=== PATIENT | female | born 1950 | race Caucasian/White ===

== ENCOUNTER 2017-04-13 19:33 | Emergency (ER) | payer MEDICARE, SELFPAY ==
[~2017-04-13] VITALS: Ht 160 cm; Wt 99.3 kg
[~2017-04-13 19:33] MED LIST: ALIVE WOMEN'S1 EACH PO; CLIN300 PO; Cinnamon500 MG PO; HYDCHL50 PO; LEVSOD50 PO; NAPR220 PO; OTC ALLERGY MEDS; RXTRAM50 PO; TRAM50 PO; VITAMIN D31000 UNI1 PO
[2017-04-13] MEDS ORDERED: INDO50 PO (21:19)
[2017-12-11] MEDS ORDERED: CEPH500 PO (08:44)
[2017-12-11] MEDS ORDERED: Mupirocin22 GM TOP (08:44)
== END 2017-04-13 21:45 | disposition home or self-care (01) ==
LOC: ER 19:33
DX: M10.071 Idiopathic gout, right ankle and foot (principal); Z88.0 Allergy status to penicillin; Z79.899 Other long term (current) drug therapy; Z90.710 Acquired absence of both cervix and uterus; Z90.49 Acquired absence of other specified parts of digestive tract
CPT/HCPCS: 73660; 84550; 99283

== ENCOUNTER 2017-10-25 21:27 | Emergency (ER) | payer MEDICARE, SELFPAY ==
[~2017-10-25] VITALS: Ht 160 cm; Wt 99.8 kg
[~2017-10-25 21:27] MED LIST changes: +INDO50 PO
== END 2017-10-25 23:17 | disposition home or self-care (01) ==
LOC: ER 21:27
DX: L60.0 Ingrowing nail (principal); Z88.0 Allergy status to penicillin; Z79.899 Other long term (current) drug therapy
CPT/HCPCS: 11765; 96372; 99282; J1885